=== PATIENT | female | born 1985 | race Caucasian/White ===

== ENCOUNTER 2022-01-04 01:51 | Emergency (ER) | payer SELFPAY | END 2022-01-04 02:44 | disposition LWBS | DX: Z53.21 Procedure and treatment not carried out due to patient leaving prior to being seen by health care provider (principal) ==

== ENCOUNTER 2022-01-04 02:12 | Emergency (ER) | payer MEDICAID, OTHER, SELFPAY ==
[2022-01-04 01:58] VITALS: BP 123/87; PULSE 75; RESP 18; TEMP 37; O2SAT 96
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
[2022-01-04] MEDS: Acetaminophen 500 MG TAB 1000 MG PO (03:38)
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
[2022-01-04] MEDS: Azithromycin 250 MG TAB 2000 MG PO (08:06)
[2022-01-04 08:17] LABS: Abs Immature Grans 0.02 10^3/uL (0.0-0.06); Absolute Basophil Count 0.05 10^3/uL (0.0-0.2); Absolute Eosinophil Count 0.14 10^3/uL (0.0-0.7); Absolute Lymphocyte Count 2.52 10^3/uL (1.2-3.4); Absolute Monocyte Count 0.76 10^3/uL (0.1-0.8); Absolute Neutrophil Count 2.39 10^3/uL (1.2-6.7); Basophils % 0.9; Eosinophils % 2.4; HCT 44.3 % (36.0-46.0); HGB 14.6 g/dL (11.2-15.7); Immature Grans % 0.3; Lymphocytes % 42.9; MCH 30.5 pg (27.0-33.0); MCV 93 fL (80-95); MPV 11.3 fL (8.0-11.0); Monocytes % 12.9; Neutrophils % 40.6; Platelet Count 156 10^3/uL (130-400); RBC 4.78 10^6/uL (3.93-5.22); RDW-SD 41.5 fL; WBC 5.88 10^3/uL (4.4-10.8)
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
[2022-01-04 08:41] LABS: ALT 35 U/L (14-59); AST 25 U/L (15-37); Albumin 3.9 g/dL (3.4-5.0); Alkaline Phosphatase 68 U/L (46-116); Anion Gap 5.3 mmol/L (3-11); BUN 27 mg/dL (7-18); CO2 31.7 mmol/L (21.0-32.0); CREATININE 0.8 mg/dL (0.55-1.02); Calcium 9.7 mg/dL (8.5-10.1); Chloride 102 mmol/L (98-107); Glucose 83 mg/dL (74-106); Potassium 3.7 mmol/L (3.5-5.1); Sodium 139 mmol/L (136-145); Total Protein 7.3 g/dL (6.4-8.2)
[2022-01-04 08:42] LABS: ETHANOL BLOOD < 3.0 mg/dL (<10)
[2022-01-04 09:22] LABS: *AMPHETAMINES SCREEN URINE Negative (Negative); *BARBITURATES SCREEN URINE Negative (Negative); *BENZODIAZEPINES SCREEN URINE Negative (Negative); Cannabinoids THC Positive (Negative); Cocaine Screen,Urine Positive (Negative); METHADONE URINE SCREEN Positive (Negative); OPIATES URINE SCREEN Negative (Negative); Tricyclic Antidepressants Negative (Negative)
--- NOTE | 2022-01-04 14:47 | NUR.NOTE ---
Asked to see patient for SANE- reviewed process with the patient and obtained consent. Discussed disease prophylaxis with patient and Dr. Ramirez- as patient had numerous severe antibiotic allergies but was unable to recall them all, relayed that just prescribing would be dangerous. Patient states that she would discuss this with her PCP but expressed concern about not getting medicine she could take home with her. Reititerated that rationale for not ordering medications with unclear information regarding allergies recommended testing at 2 and 4 weeks. Pt declined follow up with [facility] provider as she is from the [facility]. Kit was completed and taken by TOREY Michaels. Patient wanted a DFSA kit done- sample recieved [facility]. Paperwork for processing kit was reviewed with patient and form/instructions were provided verbal and written.Nursing Note:
--- NOTE | 2022-01-04 14:55 | NUR.NOTE ---
Kit [id number] utilized for collection. Nursing Note:
[2022-01-05 15:20] LABS: Chlamydia Result Negative (Negative); GC Result Negative (Negative)
[2022-01-06 09:51] LABS: HIV-1/2 Ag & Ab Screen Negative (Negative)
[2022-01-06 10:08] LABS: Hepatitis A Antibody IgM Negative (Negative); Hepatitis B Core Antibody Negative (Negative); Hepatitis B surface Ag Negative (Negative); Hepatitis C Ab w Rflx HCV PCR Reactive (Negative)
[2022-01-07 13:48] LABS: HCV RNA Detection Quantitative 288000 IU/mL (Undetected); HCV RNA Qualitative Detected (Undetected)
== END 2022-01-04 09:08 | disposition home or self-care (01) ==
PROVIDERS: Student in an Organized Health Care Education/Training Program; Emergency Provider Student in an Organized Health Care Education/Training Program
DX: T74.21XA Adult sexual abuse, confirmed, initial encounter (principal); S30.814A Abrasion of vagina and vulva, initial encounter; G89.11 Acute pain due to trauma; M25.561 Pain in right knee; J45.909 Unspecified asthma, uncomplicated; F17.210 Nicotine dependence, cigarettes, uncomplicated; Y07.9 Unspecified perpetrator of maltreatment and neglect
CPT/HCPCS: 36415; 73562; 80053; 80307; 81025; 86704; 86709; 86803; 87340; 87389; 87491; 87522; 87591; 99284; 80320; 85025